=== PATIENT | male | born 1990 | race Caucasian/White ===

== ENCOUNTER 2017-11-15 12:59 | Emergency (ER) | payer MEDICAID ==
[~2017-11-15 12:59] MED LIST: AMOX500T2 PO; EPIN0.3P8 IM; HYDR-569 PO; PRED10TA PO
== END 2017-11-15 14:21 | disposition left against medical advice (07) ==
LOC: ER 13:00
DX: S99.919A Unspecified injury of unspecified ankle, initial encounter (principal); Z53.21 Procedure and treatment not carried out due to patient leaving prior to being seen by health care provider

== ENCOUNTER 2019-10-23 14:24 | Emergency (ER) | payer MEDICAID ==
[~2019-10-23] VITALS: Ht 162.6 cm; Wt 70.5 kg
[~2019-10-23 14:24] MED LIST changes: +HYDR-4383 PO; -HYDR-569 PO
[2019-10-23] MEDS ORDERED: HYDROcodone/acetaminophen 5mg/325mg tablet PO ONE (14:55)
[2019-10-23] MEDS ORDERED: ondansetron 4mg rapidly disintigrating tab PO ONE (14:55)
[2019-10-23] MEDS ORDERED: IBUP-1984 PO (15:31)
[2019-10-23 15:43] VITALS: BP 119/60
== END 2019-10-23 15:46 | disposition home or self-care (01) ==
LOC: ER 14:25
DX: M79.671 Pain in right foot (principal); Z56.0 Unemployment, unspecified; Z91.030 Bee allergy status
CPT/HCPCS: 73650; 99284

== ENCOUNTER 2022-06-01 07:54 | Emergency (ER) | payer MEDICAID ==
[~2022-06-01] VITALS: Ht 167.6 cm; Wt 68.2 kg
[2022-06-01 07:58] VITALS: BP 137/89
[2022-06-01 08:40] LABS: COLOR,URINE YELLOW (Yellow); GLUCOSE, URINE NEGATIVE (Neg); KETONES,URINE TRACE mg/dl (Neg); LEUKOCYTE ESTERASE ,URINE NEGATIVE (Neg); NITRITES, URINE NEGATIVE (Neg); OCCULT BLOOD,URINE NEGATIVE (Neg); PROTEIN,URINE 30 mg/dl (Neg)
[2022-06-01 08:41] LABS: CLARITY,URINE Slightly Cloudy (Clear); UA COLLECTION TYPE CLN CATCH MIDSTREAM
[2022-06-01 09:01] LABS: BACTERIA,URINE NONE SEEN /HPF (Neg); HYALINE CASTS 0-3 /LPF (NEGATIVE); MUCUS STRANDS MODERATE /LPF (Neg); RBC,URINE 0-2 /HPF (0-2); SQUAMOUS EPITHELIAL CELL,UR FEW /LPF (FEW); WBC,URINE 0-4 /HPF (0-4)
[2022-06-01] MEDS ORDERED: ONDA4TAB12 PO (09:51)
== END 2022-06-01 10:10 | disposition home or self-care (01) ==
LOC: ER 07:54
DX: J10.1 Influenza due to other identified influenza virus with other respiratory manifestations (principal); Z20.822 Contact with and (suspected) exposure to COVID-19; J06.9 Acute upper respiratory infection, unspecified; Z87.448 Personal history of other diseases of urinary system; Z59.00 Homelessness unspecified; Z91.030 Bee allergy status; Z79.899 Other long term (current) drug therapy; Z79.2 Long term (current) use of antibiotics
CPT/HCPCS: 81001; 87502; 87503; 87635; 99283; C9803